=== PATIENT | female | born 1975 | race Caucasian/White ===

== ENCOUNTER 2024-04-09 18:58 | Emergency (ER) | payer OTHER, SELFPAY ==
[2024-04-09 19:02] VITALS: BP 176/110
[2024-04-09 19:23] LABS: % Basophils 0.6 % (0-2); % Eosinophils 1.3 % (0-6); % Immature Granulocytes 0.4 % (0-0.5); % Lymphocytes 30.5 % (20.5-51.1); % Monocytes 9.5 % (1.7-9.3); % Neutrophils 57.7 % (42.2-75.2); Absolute Basophils 0.1 10^3/uL (0-0.2); Absolute Eosinophils 0.1 10^3/uL (0-0.7); Absolute Monocytes 0.9 10^3/uL (0.1-0.6); Absolute Neutrophils 5.6 10^3/uL (1.4-6.5); Hemoglobin 15.3 g/dL (12.0-16.0); Mean Corpuscular Hgb 32.3 pg (27.0-31.0); Mean Corpuscular Volume 95.1 fL (81.0-99.0); Mean Platelet Volume 9.6 fL (7.4-10.4); Nucleated Red Blood Cells % 0 %; Platelet Count 256 10^3/uL (130-400); Red Blood Cell Count 4.73 10^6/uL (4.20-5.40); Red Cell Dist. Width 12.8 % (11.5-14.5); White Blood Cell Count 9.7 10^3/uL (4.8-10.8)
[2024-04-09 19:44] LABS: ALT (SGPT) 29 U/L (0-35); AST (SGOT) 21 U/L (14-36); Albumin 4.9 g/dl (3.5-5.0); Alkaline Phosphatase 63 U/L (38-126); Blood Urea Nitrogen 23 mg/dl (7-17); Calcium 10.1 mg/dl (8.4-10.2); Glucose 121 mg/dl (70-99); Lipase 128 U/L (23-300); Total Bilirubin 0.4 mg/dl (0.2-1.3); Total Protein 8.2 g/dl (6.3-8.2); eGFR > 60.00
[2024-04-09 19:52] LABS: Carbon Dioxide 26 mmol/L (22-30); Chloride 102 mmol/L (98-107); Sodium 136 mmol/L (135-145)
[2024-04-09 19:56] LABS: Potassium 4.4 mmol/L (3.5-5.1)
[2024-04-09 21:40] VITALS: BP 145/74
[2024-04-09 22:00] VITALS: BP 147/74
[2024-04-09 23:00] VITALS: BP 136/80
--- NOTE | 2024-04-09 23:45 | ED.GENMED ---
History of Present Illness
General
Chief Complaint: Abdominal Pain
Source: patient
Exam Limitations: none
Time Seen by Provider: 04/09/24 23:28
Travel History
Have you had any contact with someone who has COVID-19?: No
Do you have any symptoms of coronavirus? Fever > 100 degrees, chills, cough, shortness of breath, sore throat, loss of taste or smell, muscle aches, or headache?: No
History of Present Illness
History of Present Illness:
This is a 48 year old female that comes in with c/o right lower abd pain. States that she started with right lower abd pain last night. States that the pain has continued all day. States that she was also nauseated. Denies any fever, chills, chest
pain, SOB, vomiting, diarrhea, headache, dizziness, urinary burning.
Past History
Past History
ED Past Medical History: Asthma (Allergy induced), Cancer (Breast CA), HTN, Hypercholesterolemia, NIDDM and Other (Abd hernia post surgery, BEAL starge 4 fibrosis, 2 bowel obstructions)
ED Past Surgical History: Orthopedic (Right leg surgery, Lumbar fusion) and Other (Bilateral mastectomy with reconstructive surgery. Back surgery, Hernia, )
Social History
Tobacco: Former smoker
Alcohol: Occasional
Personal: Single
Living: alone
Review of Systems
Review of Systems
All Other Systems: ROS reviewed and negative except as documented in HPI and ROS
Constitutional: Reports no symptoms; Denies fever or chills
EENT: Reports no symptoms
Respiratory: Reports no symptoms; Denies cough or trouble breathing
Cardiac: Reports no symptoms; Denies chest pain
ABD/GI: Reports abdominal pain and nausea; Denies vomiting or diarrhea
: Reports no symptoms; Denies dysuria, frequency or urgency
Musculoskeletal: Reports no symptoms
Skin: Reports no symptoms
Neurological: Reports no symptoms; Denies dizzy or headache
Psychiatric: Reports no symptoms
Phy Exam
General Physical Exam
General Presentation: no apparent distress
General age: appears stated age
General Skin: warm and dry
General Habitus: normal
General Mental: alert
General Hydration: appears well hydrated
ENT Exam
ENT Exam: TM's normal, pharynx normal and neck supple
Eye Exam
Eye Exam: EOMI
Cardiovascular Exam
Cardiovascular Exam: regular rate/rhythm, no edema and normal peripheral pulses
Pulmonary Exam
Pulmonary Exam: lungs clear, no respiratory distress, no rales, chest non tender, no crackles, no rhonchi, no wheezing and no cough
Gastrointestinal Exam
Gastrointestinal Exam: normal bowel sounds, soft, no organomegaly, no pulsatile mass, non distended and tender (Right lower abd tenderness with palpation)
Musculoskeletal Exam
Musculoskeletal Exam: full ROM and no edema
Skin Exam
Skin Exam: normal color, warm/dry, no rash and no petechia
Psychiatric Exam
Psychiatric Exam: normal mood/affect
Course
Orders/Labs/Results
Orders:
Orders
04/09/24 19:16
Complete Blood Count/With Diff Urgent
Comprehensive Metabolic Panel Urgent
HCG, Serum Qualitative Screen Urgent
Comment: ADDED
Lipase Urgent
04/09/24 23:45
0.9% Sodium Chloride 1000 ml [Nss] 1,000 ml IV BOLUS
04/09/24 23:48
Add On- LAB Urgent
Tests Added?: HCG
04/10/24 00:45
CT Abd/pelvis W Iv Cont Urgent
Reason For Exam: Right lower abd pain
Abnormal Lab Results
04/09/24
19:16
MCH 32.3 H pg
(27.0-31.0)
Absolute Monos (auto) 0.9 H 10^3/uL
(0.1-0.6)
Monocytes % 9.5 H %
(1.7-9.3)
BUN 23 H mg/dl
(7-17)
Glucose 121 H mg/dl
(70-99)
04/09/24 19:16
04/09/24 19:16
Dehydration. Glucose nonfasting. Lipase normal at 128
Vital Signs
Initial and Last Documented VS:
Initial Vital Signs
Temp Pulse Resp BP Pulse Ox
98.4 F 103 18 176/110 99
04/09/24 19:02 04/09/24 19:02 04/09/24 19:02 04/09/24 19:02 04/09/24 19:02
Last Documented Vital Signs
Temp Pulse Resp BP Pulse Ox
98.4 F 92 16 143/83 98
04/09/24 19:02 04/09/24 21:44 04/09/24 21:44 04/10/24 00:00 04/10/24 00:00
MDM/Problems Addressed
Differential Diagnosis Includes:
Ovarian cyst, Appendicitis. Bowel obstruction
MDM/Problems Addressed:
This is a 48 year old female that comes in with c/o right lower abd pain. States that this started last night and has continued today and getting worse.
Will get labs and CT scan.
Back into see patient. Explained that her blood work shows dehydration and her CT scan is negative for any acute process. There is a ventral hernia that has small bowel but there is no obstruction. Explained to patient that nerves wrap around from
the back and this may cause her abd pain. Patient states that she has been hiking and had some love making sessions. Encouraged patient to use Tylenol 1000mg every 6 hours for pain and Ibuprofen 600mg every 6 hours with food for pain. Heat or ice to
the back. Follow up with the family doctor. Return with increased pain, vomiting, fever, or any other concerns.
Chronic conditions affecting care: Previous abdomnial surgery
Acute Exacerbation and/or Progression of Chronic Illness: Previous abdomnial surgery
*Radiology
Radiology exam reviewed: radiology read reviewed (CT night hawk- NO acute intra-abdominal pathhology. No bowel obstruction or inflammation. Appendix is normal. NO hydronephrosis or nephrolithiasis. NO free air or free fluid. Moderate ventral hernia
containing nonobstructed small bowel. Posterior spinal fusion hardware from L3-L5)
*Pulse Oximetry
Patient hypoxic: no
*EKG
Interpreted by ED Provider?: NA
Rate: EKG- N/A
*Infant Caregiver Interpretation
Rate: Infant Caregiver- N/A
*Critical Care Note
Total Time (30-74mins, 75-104mins- exclusive of procedures): Not Applicable
ED Attending Note
-
Portions of this chart may have been created with voice recognition software.� Occasional wrong word or��sound alike� substitutions may have occurred due to the inherent limitations of voice recognition software.
Discharge Plan
Departure
Patient Disposition: Home (Routine Discharge)
Date of Disposition: 04/10/24
Time of Disposition: 03:05
Patient with high blood pressure during this ER visit?: Yes
Condition: Good
Covid-19: Not Applicable
Discharge Problem:
Right sided abdominal pain
Instructions: Abdominal Pain, BLOOD PRESSURE
Prescriptions:
No Action
metformin 500 MG tablet
500 mg PO BID
cetirizine 10 MG tablet
10 mg PO DAILYPRN PRN (Reason: allergies)
lisinopril 10 MG tablet
10 mg PO DAILY
naproxen sodium [Aleve] 220 MG tablet
440 mg PO BIDPRN PRN (Reason: mild pain)
loratadine-pseudoephedrine 120 MG/5 MG tablet extended release 12 hr
1 tab PO DAILYPRN PRN (Reason: allergies)
coenzyme Q10 [Co Q-10] 300 MG capsule
300 mg PO HS
vitamins A,C,E-nlba-aybiks [PreserVision AREDS] 1 CAP capsule
1 cap PO BID
saxagliptin [Onglyza] 2.5 MG tablet
5 mg PO HS
cholecalciferol (vitamin D3) [Vitamin D3] 4,000 UNIT capsule
4,000 unit PO DAILY
empagliflozin [Jardiance] 25 MG tablet
25 mg PO DAILY
Magnesium Gluconate
1 tab PO QPM
Referrals:
Isis Herron CRNP [Family Provider] - Call in 1-3 days for appt
Activity Restrictions/Additional Instructions:
As discussed, your blood work shows that you are dehydrated. Please increase your water intake to 8-8oz glasses daily. Your CT is negative for any acute process. Your Abd pain may be due to your back as the nerves wrap around to the abd. Please use
heat or ice to the back. You may also take Tylenol 1000mg every 6 hours for pain and alternate with Ibuprofen 600mg every 6 hours with food. Follow up with the family doctor for recheck. IF YOU HAVE INCREASED OR CHANGING PAIN, FEVER, OR YOU HAVE ANY
OTHER CONCERNS PLEASE RETURN TO THE EMERGENCY ROOM.
Interventions
Interventions:
*Risk Screen - Suicide Last Done: 04/09/24 19:02
*General Assessment Last Done: 04/09/24 19:02
*Neglect/Abuse Screening Last Done: 04/09/24 19:02
ED- Fall Risk Assessment Last Done: 04/09/24 21:51
*ED COVID-19 Vaccine History Last Done: 04/09/24 19:02
SV-Pyvnvz-Qvbpztksfg Assessment Last Done: 04/09/24 21:51
Discharge Date and Time
Print Language: [place]IZ[place]
[2024-04-09] MEDS: NSS 1000 IV (23:59)
[2024-04-10] VITALS: BP 143/83
[2024-04-10 00:38] LABS: HCG, Serum Qualitative Screen Negative
[2024-04-10] MEDS: TORADOL 30 MG IV (03:08)
[2024-04-10 03:09] VITALS: BP 140/85
[2024-04-10 03:30] VITALS: BP 140/85
== END 2024-04-10 03:30 | disposition home or self-care (01) ==
LOC: EMR 18:58
PROVIDERS: Emergency Medicine; EMERGENCY PHYSICIAN Student in an Organized Health Care Education/Training Program; FAMILY PHYSICIAN Nurse Practitioner Adult Health
DX: R10.31 Right lower quadrant pain (principal); J45.909 Unspecified asthma, uncomplicated; I10 Essential (primary) hypertension; E78.00 Pure hypercholesterolemia, unspecified; E11.9 Type 2 diabetes mellitus without complications; K75.81 Nonalcoholic steatohepatitis (NASH); E86.0 Dehydration; Z85.3 Personal history of malignant neoplasm of breast; Z87.891 Personal history of nicotine dependence; Z98.1 Arthrodesis status
CPT/HCPCS: 99284; 96374; 96361; 74177; 80053; 83690; 84703; 85025; Q9967